=== PATIENT | male | born 1985 ===

== ENCOUNTER 2018-01-25 17:26 | Emergency (ER) | payer OTHER ==
[2018-01-25 17:38] VITALS: RESP 18; TEMP 98; O2SAT 99
[2018-01-25] MEDS ORDERED: Sodium Chloride 0.9% 500 ML IV ONE (18:49)
--- NOTE | 2018-01-25 18:49 | C.PDOC ---
History Of Present Illness 32 year old male with no known allergies to medications presents to the ED for evaluation of vomiting x8 episodes and diarrhea x8 episodes associated with headaches for 1 day. The patient reports he has not been able to tolerate solid foods or liquids. Notes headaches are typical when he is hungry and states his son is sick with similar symptoms. Denies fever, chills, hematuria, hematochezia, and any other associated symptoms. Time Seen by Provider: 01/25/18 18:11 Chief Complaint (Nursing): Abdominal Pain History Per: Patient History/Exam Limitations: no limitations Onset/Duration Of Symptoms: Days (x1) Current Symptoms Are (Timing): Still Present Past Medical History Reviewed: Historical Data, Nursing Documentation, Vital Signs Vital Signs: Last Vital Signs Temp 98 F 01/25/18 17:36 Pulse 90 01/25/18 17:36 Resp 18 01/25/18 17:36 BP 117/72 01/25/18 17:36 Pulse Ox 99 01/25/18 17:36 Family History: States: Unknown Family Hx - Social History Hx Alcohol Use: Yes Hx Substance Use: No - Immunization History Hx Tetanus Toxoid Vaccination: No Hx Influenza Vaccination: No Hx Pneumococcal Vaccination: No Review Of Systems Except As Marked, All Systems Reviewed And Found Negative. (all other systems negative except as noted in the HPI.) Gastrointestinal: Positive for: Vomiting, Diarrhea Physical Exam - Physical Exam Eye(s): bilateral: Normal Inspection Additional Physical Exam Comments: Gen: VS reviewed, alert, well developed, well nourished, nontoxic, mild distress Eye: EOMI, PERRL Neck: no JVD, supple, no adenopathy CV: regular rate, regular rhythm, no rubs, no murmur, S1, S2 Pulm: no distress, clear to auscultation, no wheeze, no rhonchi, breath sounds equal, no rales Abd: soft, nontender, no guarding, no rebound, no rigidity Extremities: no edema Skin: good color, no rash, no cyanosis Psych: responds appropriately to questions, normal affect Neuro: oriented x3, CN2-12 intact grossly, motor intact, sensation intact ED Course And Treatment - Laboratory Results Result Diagrams: 01/25/18 19:38 O2 Sat by Pulse Oximetry: 99 (RA) Pulse Ox Interpretation: Normal Medical Decision Making Medical Decision Making: patient seen for vomiting and diarrhea with positive close sick contact. no fever, no particular abdominal pain, no abnormal po intake. patient is nontoxic appearing and feels well to go home. i have discussed in detail the findings with the patient and at bedside. it is understand that the labs today consistent with a very mild transaminitis which is consistent with current viral syndrome. patient understands and agrees with plan to follow up with his pcp to get repeat bloodwork within one week or to return immediately for any new or worsening symptoms. Disposition - Disposition Disposition: HOME/ ROUTINE Disposition Time: 20:22 Condition: STABLE Additional Instructions: Return for any new or worsening symptoms especially fever greater than 100.4, persistent vomiting, severe abdominal pain, dark urine. Follow up with your primary care doctor within one week to have repeat bloodwork. Your bloodwork today showed a normal t-bili at 1.1, AST 64 and ALT 77. The AST and ALT numbers are very mildly elevated-have these numbers rechecked as discussed. ESTEFANÍA ZURITA, thank you for letting us take care of you today. Your provider was Dr. Lexx Gipson and you were treated for VOMITING/DIARRHEA. The emergency medical care you received today was directed at your acute symptoms. If you were prescribed any medication, please fill it and take as directed. It may take several days for your symptoms to resolve. Return to the Emergency Department if your symptoms worsen, do not improve, or if you have any other problems. Please contact your doctor or call one of the physicians/clinics you have been referred to that are listed on the Patient Visit Information form that is included in your discharge packet. Bring any paperwork you were given at discharge with you along with any medications you are taking to your follow up visit. Our treatment cannot replace ongoing medical care by a primary care provider outside of the emergency department. Thank you for allowing the [facility] team to be part of your care today. If you had an X-Ray or CT scan: A Radiologist will review the ED reading if any change in treatment is needed we will contact you. If you had a blood, urine, or wound culture: It will take several days for the results, if any change in treatment is needed we will contact you. If you had an STI test: It will take 48 hours for the results. Please call after 1 week if you have not heard back. Prescriptions: Ondansetron [Zofran] 4 mg PO Q8H #12 tab Instructions: Viral Syndrome (DC) Forms: [employer] (Greek) - Clinical Impression Clinical Impression: Viral syndrome - Scribe Statement The provider has reviewed the documentation as recorded by the Scribe (Noelle Lugo) Provider Attestation: All medical record entries made by the Scribe were at my direction and personally dictated by me. I have reviewed the chart and agree that the record accurately reflects my personal performance of the history, physical exam, medical decision making, and the department course for this patient. I have also personally directed, reviewed, and agree with the discharge instructions and disposition.
[2018-01-25 19:57] LABS: BLOOD UREA NITROGEN 23 mg/dL (9-20); CALCIUM 8.7 mg/dl (8.6-10.4); GFR NON-AFRICAN AMERICAN > 60
[2018-01-25 19:58] LABS: ALB/GLOB RATIO 1.1 (1.0-2.1); ALBUMIN 4.9 g/dL (3.5-5.0); ALT/SGPT 77 U/L (21-72); AST/SGOT 64 U/L (17-59)
[2018-01-25 20:40] VITALS: BP 104/60; PULSE 82
== END 2018-01-25 20:42 | disposition home or self-care (01) ==
LOC: C.ER 17:26
DX: B34.9 Viral infection, unspecified (principal)
CPT/HCPCS: 80053; 99284; J7040